=== PATIENT | male | born 1955 | race Caucasian/White ===

== ENCOUNTER → 2019-06-12 | Outpatient (CLI) | payer BC ==
[~2019-06-12] MED LIST: ASPIRIN325 PO; CARVEDILOL6.25 M1 PO; EFFIENT10 MG PO; OLMESARTAN MEDO40 MG PO; PROAIR HFA8.5 GM INH; ROSUVASTATIN CA10 MG PO
== END ==
LOC: SJCVCIMAG 11:21
PROVIDERS: ATTEND Internal Medicine
DX: I34.0 Nonrheumatic mitral (valve) insufficiency (principal); I51.7 Cardiomegaly; I45.10 Unspecified right bundle-branch block; Z79.899 Other long term (current) drug therapy; Z88.0 Allergy status to penicillin

== ENCOUNTER 2019-06-23 09:25 | Observation (INO) | payer BC ==
[~2019-06-23] VITALS: Ht 182.9 cm; Wt 93.9 kg
[2019-06-23 10:18] VITALS: BP 143/95
[2019-06-23 10:26] LABS: HEMATOCRIT 40.7 % (42.0-52.0); HEMOGLOBIN 13.8 gm/dL (14.0-18.0); MCV 91.3 fL (80.0-100.0); RBC 4.46 mil/uL (4.50-6.00); RDW 12.7 % (10.5-14.5); WBC 4.6 thou/uL (4.0-11.0)
[2019-06-23] MEDS ORDERED: CARVEDILOL6.25 M1 PO (10:27)
[2019-06-23] MEDS ORDERED: ROSUVASTATIN CA10 MG PO (10:30)
[2019-06-23] MEDS ORDERED: PROAIR HFA8.5 GM INH (10:31)
[2019-06-23] MEDS ORDERED: OLMESARTAN MEDO40 MG PO (10:31)
[2019-06-23 10:35] LABS: CALCIUM 9.1 mg/dL (8.5-10.1)
--- NOTE | 2019-06-23 11:10 | EKG ---
[facility] [place] [address] ELECTROCARDIOGRAM REPORT Name: RYAN BEAR Room #: REG CLI M.R.#: [id number] Admission: 06/23/19 Attend Phys: Charly Barrientos Discharge: Date of : 57 Report #: [id number] THIS REPORT FOR: cc: Nicola Hernandez MD, David P. MD Couchonnal, Luis F. MD ~ THIS REPORT FOR: //name// [facility] Test Date: 2019-06-23 Test Time: 10:21:08 Pat Name: RYAN BEAR Department: Room: Gender: Applications Coordinator: : 1955 Requested By: Charly Barrientos Order Number: [id number] MD: Fer Mcghee Measurements Intervals [place] Rate: 60 P: -18 NH: 160 QRS: -8 QRSD: 114 T: -28 QT: 412 QTc: 412 Interpretive Statements Sinus rhythm Incomplete left bundle branch block Left ventricular hypertrophy No previous ECG available for comparison Electronically Signed On 06-23-2019 11:08:33 CDT by Fer Mcghee [email or web address] <ELECTRONICALLY SIGNED> By: Fer Mcghee MD 06/23/19 1108 1021 1021 Fer Mcghee MD /EPI
[2019-06-23 15:45] VITALS: BP 113/63
--- NOTE | 2019-06-23 16:57 | NUR ---
TO UNIT FROM [facility] AT 1545. VSS. DENIES PAIN. GROIN SITES CDI. BEDREST UNTIL 1740. SR/SB PER TELE. WILL CONTINUE TO FOLLOW CLOSELY.
[2019-06-23 17:30] VITALS: BP 140/73
[2019-06-23 20:18] VITALS: BP 110/57
[2019-06-24 00:05] VITALS: BP 134/74
--- NOTE | 2019-06-24 04:52 | NUR ---
ASSUMED PT CARE AT 1900. PT IS ALERT AND ORIENTED. NO SIGN OF DISTRESS NOTED IN PT. DENIES ANY PAIN. BILATERAL GROIN SITE IS INTACT NO SIGN OF BLEEDING OR HEMATOMA. PT IS AMBULATORY. ASSESSMENT COMPLETED AND DOCUMENTED. DENIES ANY PAIN. CONTINUE TO MONITOR PT. DENIES ANY FURTHER NEEDS AT THIS TIME.
[2019-06-24 05:17] VITALS: BP 142/68
[2019-06-24] MEDS ORDERED: EFFIENT10 MG PO (08:11)
[2019-06-24] MEDS ORDERED: ASPIRIN325 PO (08:11)
[2019-06-24 09:00] VITALS: BP 145/100
[2019-06-24 11:46] VITALS: BP 140/87
[2019-06-24 12:14] VITALS: BP 140/87
--- NOTE | 2019-06-24 12:34 | NUR ---
ASSESSMENT CHARTED. PT ALERT AND ORIENTED. VSS. RIGHT AND LEFT GROIN INCISION C/D/I. NO HEMATOMA NOTED. ORDERS GIVEN TO DISCAHRGE PT TO HOME. DISCHARGE INSTRUCTIONS GIVEN TO PT. PT VERBERLISED UNDERSTANDING.
--- NOTE | 2019-07-09 13:02 | CATHLAB ---
[facility] [place] [address] INVASIVE PROCEDURE REPORT Name: RYAN BEAR Room #: 209-P [facility] Ximena Hurtado#: [id number] Admission: 06/23/19 Attend Phys: Charly Barrientos Discharge: 06/24/19 Date of : 57 Report #: [id number] THIS REPORT FOR: cc: Nicola Hernandez MD, David P. MD Lammoglia, Francisco J. MD ~ APPROVED REPORT Study performed: 06/23/2019 11:47:35 Patient Details Patient Status: Out-Patient Room #: The patient is a 63 year-old male Event Personnel Charly Barrientos Fire Engine Operator, Buffy Hallman CVT Monitor, Elder Myers RT(R)(CV) Jorge Dickens Ashley RN nicu rn Performed Art Access - L femoral artery* 39403 Initial Mod Sed Same Phys/QHP Gr5y 807947 17127 Mod Sed Same Phys/QHP Ea 343515 OVIDIO Place w/wo Plasty Single RCA 529672 Hemostasis w/ Mynx , Left Heart Catheterization, supervision of conscious sedation Indication Positive stress test, Chest pain Procedure Narrative The Right Groin^ was infiltrated with 1% Lidocaine subcutaneous anesthesia. A PINNACLE 4FR Sheath #[id number] sheath was inserted into the RFA^. Coronary angiography was performed using coronary diagnostic catheters. The right coronary system was accessed and visualized with a JR4 catheter. The left coronary system was accessed and visualized with a JL4 catheter. The patient tolerated the procedure well and there were no complications associated with the procedure. Intraoperative Conscious Sedation Sedation start time: 1210 Case end Time: 1301 Versed 2 mg [facility] [address] [place] [address] INVASIVE PROCEDURE REPORT Name: RYAN BEAR Room #: 209-P [facility] IN [employer]#: [id number] Admission: 06/23/19 Attend Phys: Charly More Discharge: 06/24/19 Date of : 57 Report #: [id number] Fluoro Time: 11.20 minutes Dose: DAP 79049.00 cGycm2 1815 mGy Contrast Type and Amount: Omnipaque 180 ml Coronary Angiography The patient's coronary anatomy is right dominant. Diagnostic Cath Left Main Normal origin moderate to large caliber bifurcates left anterior descending left circumflex is free of high-grade disease LAD Moderate caliber type III vessel which gives rise to an early diagonal branch which is moderate in size. It then courses in the anterior interventricular sulcus terminating as a small caliber vessel and the posterior inferoapical wall. Minimal luminal irregularities are noted Diagonal 1 Moderate caliber vessel coursing along the anterolateral wall free of high-grade disease older is a mild 20-30% eccentric lesion at its proximal portion Diagonal 2 Small insignificant caliber Circumflex Moderate caliber vessel of normal origin and gives rise to moderate lateral wall marginal branch. The circumflex proper then terminates as a small insignificant posterior wall vessel. The remaining previously described vessel is free of high-grade disease OM1 Moderate caliber vessel as described above Right Coronary Moderate caliber dominant vessel of normal origin proceeds in the AV groove. At prior to the crux of the heart is a 90+ percent eccentric lesion with mild thrombus noted. Beyond this the posterior descending artery and posterior wall branches are identified. Aside from this high-grade lesion is only mild irregularities noted R PDA Small-caliber vessel with a proximal 50% lesion noted. This is not flow-limiting. It then continues in the posterior ventricular sulcus towards the apex Left Ventriculography Left Ventriculography was not performed. Hemodynamics The aortic pressure is 142/82 mmHg with a mean of 93 mmHg. PCI Technique Following termination of need to progress the 4 Bulgarian system was exchanged for a 6 Bulgarian system. A standard JR 4 guide was engaged the right coronary ostium. Wire was advanced under fluoroscopic [facility] [address] [place] [address] INVASIVE PROCEDURE REPORT Name: MARIANELARYAN Room #: 209-P [facility] IN M.R.#: [id number] Admission: 06/23/19 Attend Phys: Charly More Discharge: 06/24/19 Date of : 57 Report #: [id number] realization that distal to the lesion. A OVIDIO [employer] stent was then positioned and deployed without difficulty. Post deployment there is no loss of side branches embolization intraluminal disruptions present. No evidence of thrombus. Eliquis of intravenous nitroglycerin were utilized at the procedure. Procedures performed Angiomax infusion. No complications. PCI Technique Lesion Percutaneous coronary intervention was performed on the mistal right coronary artery. A LAUNCHER 6FR JR 5 #[id number] Guide Catheter was used to engage the ostium. A Luge Wire .014 x 182CM #[id number] Interventional Guidewire was used to cross the lesion. BALLOON DILATION A Balloon catheter Euphora RX 4.0 x 15 #[id number] was inserted and inflated up to 5.00atm for 13seconds. Additional Inflation: 8.00atm for 17seconds. STENT DEPLOYMENT A stent RESOLUTE RX 4.0 X 15 #[id number] was inserted and inflated up to 12.00atm for 21seconds. Additional Inflation: 14.00atm for 8seconds. Conclusion 1. Coronary disease, severe, single vessel consisting of a distal mid RCA 2. Normal hemodynamics 2. Successful percutaneous revascularization and stenting of the distal mid RCA with a OVIDIO stent Recommendations Cardiac Risk Reduction Program Medical Therapy Dual antiplatelet therapy Medications Administered Prasugrel <ELECTRONICALLY SIGNED> By: Charly Barrientos MD 07/09/19 1300 1300 1300 Charly Barrientos MD /INF
== END 2019-06-24 12:41 | disposition home or self-care (01) ==
LOC: CATH 09:25 → 2N 15:36 → ENTRNSPT 06-24 12:36 → 2N 06-24 12:41 → DELTRNSPT 06-24 12:55
PROVIDERS: ADMIT Internal Medicine
DX: I70.211 Atherosclerosis of native arteries of extremities with intermittent claudication, right leg (principal); R07.89 Other chest pain; I10 Essential (primary) hypertension; E78.5 Hyperlipidemia, unspecified

== ENCOUNTER → 2019-09-22 | Outpatient (CLI) | payer BC | LOC: SJCVCIMAG 10:19 → SJCVC 11:04 → SJCVCIMAG 11:05 | PROVIDERS: ATTEND Nuclear Medicine Nuclear Cardiology | DX: I73.9 Peripheral vascular disease, unspecified (principal); E78.00 Pure hypercholesterolemia, unspecified; I10 Essential (primary) hypertension; Z95.828 Presence of other vascular implants and grafts ==

== ENCOUNTER → 2019-11-20 | Outpatient (CLI) | payer BC | LOC: SJCVCIMAG 08:46 | PROVIDERS: ATTEND Internal Medicine | DX: I34.0 Nonrheumatic mitral (valve) insufficiency (principal); I25.10 Atherosclerotic heart disease of native coronary artery without angina pectoris; E78.00 Pure hypercholesterolemia, unspecified; I10 Essential (primary) hypertension; I73.9 Peripheral vascular disease, unspecified; I42.9 Cardiomyopathy, unspecified ==

== ENCOUNTER → 2020-09-21 | Outpatient (CLI) | payer BC | LOC: SJCVCIMAG 07:53 | PROVIDERS: ATTEND Nuclear Medicine Nuclear Cardiology | DX: I65.22 Occlusion and stenosis of left carotid artery (principal); M79.661 Pain in right lower leg; M79.662 Pain in left lower leg ==

== ENCOUNTER → 2020-09-23 | Outpatient (CLI) | payer BC | LOC: SJCVCIMAG 07:25 | PROVIDERS: ATTEND Internal Medicine | DX: I10 Essential (primary) hypertension (principal); E78.5 Hyperlipidemia, unspecified; I25.10 Atherosclerotic heart disease of native coronary artery without angina pectoris ==